=== PATIENT | male | born 1975 | race African-American/Black ===

== ENCOUNTER 2016-09-23 22:57 | Emergency (ER) | payer OTHER ==
[2016-09-23] MEDS ORDERED: NORCO-7.5 PO ONE (23:42)
--- NOTE | 2016-09-24 00:13 | PROVIDER DOCUMENTATION ---
HPI-General Adult - General Chief Complaint: Work Related Injury Stated Complaint: WORK RELATED INJURY Time Seen by Provider: 09/23/16 22:59 Source: patient Allergies/Adverse Reactions: Patient Allergies Allergy/AdvReac Type Severity Reaction Status Date / Time No Known Allergies Allergy Verified 09/23/16 23:25 Home Medications: Home Medication List Medication Instructions Recorded Confirmed Last Taken Type Testosterone Enanthate IM 09/23/16 Unknown History [Delatestryl] Silver Sulfadiazine [Silvadene] 25 gm TP BID #1 cream..g. 09/24/16 Unknown Rx Tramadol [Ultram] 50 mg PO Q8HR #12 tablet 09/24/16 Unknown Rx - History of Present Illness -Gen Adult Nature of Presenting Problems: Pt. is 41 yom that presents with c/o stiles to face and back of neck. Pt. reports a line of ethylene glycol ruptured at work and it splashed on him. Pt. states he showered in the emergency shower at work but he is still hurting. Pt. denies any other injuries. Location of Pain/Injury: reports: face, neck. denies: head, mouth, chest, upper extremity, hand(s), abdomen, back, pelvis, genitalia, lower extremity, feet, upper body, lower body, generalized Pain Radiation: reports: no radiation Quality of Pain: reports: burning. denies: aching, cramping, dull, fullness, indigestion, pressure, sharp, stabbing, tearing, throbbing, tightness Severity: reports: moderate. denies: mild, severe Onset/Duration: reports: abrupt, just prior to arrival Timing: reports: still present. denies: improving, gone now, resolved prior to arrival, intermittent, constant, changing over time, getting worse Context/Activities at Onset: reports: none, recent trauma history. denies: recent emotional stress, recent physical stress, possible bad food, cold exposure, out of country travel Modifying Factors: improves with: nothing Associated Symptoms: reports: other (Stiles). denies: anxiety, arm pain, back/ neck pain, chest pain, constipation, cough, diaphoresis, diarrhea, dizziness, EENT symptoms, fatigue, fever/chills, genitourinary problems, headaches, heartburn, joint pain, loss of appetite, malaise, muscle aches, sinus congestion /drainage, nausea, rash, seizure, shortness of breath, sensory/motor loss, pain with inspiration, swelling/mass in abdomen, syncope, vomiting, weakness, trouble walking Similar Symptoms Previously?: No Recently seen or treated by another doctor?: No Review of Systems - Adult - REVIEW OF SYSTEMS - ADULT Constitutional: reports: see HPI. denies: chills, fever, fatique Eyes: reports: see HPI. denies: discharge, blurred vision, double vision Ears, Nose, Mouth & Throat: reports: see HPI. denies: ear discharge, ear pain, hearing loss, sinus problem, nose pain, loose teeth, mouth/dental pain, throat pain, throat swelling Cardiovascular: reports: see HPI. denies: chest pain, irregular heart rate, orthopnea, syncope Respiratory: reports: see HPI. denies: chronic cough, cough, dyspnea on exertion, pleurisy, shortness of breath, wheezing Gastrointestinal: reports: see HPI. denies: abdominal pain, hematemesis, difficulty swallowing, frequent heartburn, nausea, vomiting Genitourinary: reports: see HPI. denies: dysuria, discharge, hematuria, hesitency, urgency Musculoskeletal: reports: see HPI. denies: bone pain, back pain, joint pain, joint swelling, neck pain Integumentary: reports: see HPI, other (1st degree stiles to face and back of neck with mild erythema and no blistering.). denies: hives, mole changes, nail changes, rash, skin sores/ulcer, skin thickening Neurological: reports: see HPI. denies: ataxia, headache/migraines, paresthesia , seizure, tremors Psychiatric: reports: see HPI. denies: anxiety, depression, emotional problems , insomnia, panic attacks, suicidal thoughts Past History - Adult - PAST MEDICAL HISTORY-ADULT Review of Records: reports: Old Records Reviewed, Nursing Assessment Review, Medications Reviewed, Social history reviewed & non-contributory. Major Childhood Illnesses: reports: denies history Cardiovascular: reports: denies history Respiratory: reports: denies history Gastrointestinal: reports: denies history Obstetrical/Gynecological: reports: denies history Genitourinary: reports: denies history Musculoskeletal: reports: denies history Neurological: reports: denies history Endocrine/Immune: reports: denies history Other Conditions: reports: denies history - IMMUNIZATION STATUS Childhood Immunizations: See Nurse Assessment Flu Vaccine: See Nurse Assessment - FAMILY HISTORY Family History: reviewed, not pertinent - SOCIAL HISTORY Smoking: non-smoker Physical Exam-General - PHYSICAL EXAM-ADULT Initial Vital Signs Reviewed: Yes - CONSTITUTIONAL General Appearance: alert, mild distress. negative: anxious, lethargic, slow to respond, obtunded, combative - EYES Eyes: PERRL/EOMI, pink conjunctivae. negative: conjuctival exudate, scleral icterus, subconjunctival hemorrhage - HEAD, EARS, NOSE, MOUTH & THROAT HENMT: normocephalic/atraumatic, moist mucous membranes. negative: angioedema, frontal tenderness, maxillary tenderness - NECK Neck: non-tender, full range of motion, supple, normal inspection. negative: lymphadenopathy, trachial deviation, thyromegaly - RESPIRATORY Respiratory: lungs clear, normal breath sounds. negative: crackles, rales, rhonchi, stridor, wheezing - CARDIOVASCULAR Cardiovascular: normal peripheral pulses, regular rate, rhythm, no edema, no JVD , no murmur. negative: extra beats, friction rub, irregularly irregular - CHEST (BREASTS) Chest/Breast: deferred - GASTROINTESTINAL (ABDOMEN) Abdominal Exam: normal bowel sounds, non tender, soft. negative: distended, guarding, rigid, rebound, tenderness, hernia, mass - GENITOURINARY Male Genitalia: deferred Rectal Exam: deferred Hemoccult Exam: deferred - LYMPHATIC Lymphatic: no adenopathy. negative: axilla node tender, cervical node tenderness - MUSCULOSKELETAL Back Exam: normal inspection, no CVA tenderness, no vertebral tenderness. negative: ecchymosis, swelling, vertebral tenderness Extremity: normal range of motion, non-tender, normal gait, normal inspection. negative: deformity, erythema, inflammation, swelling, tenderness Peripheral Pulses: radial (R): 2+, radial (L): 2+ - SKIN Integumentary: normal color, normal turgor, warm/dry, erythema (Several small spots on face and on back of neck.), tenderness (Several small spots on face and on back of neck.). negative: cyanosis, diaphoresis, ecchymosis, jaundice, mottled, pallor, petechiae, purpura, rash, swelling - NEUROLOGIC Neurologic: grossly normal, no motor/sensory deficits. negative: aphasia, facial droop, focal weakness, motor weakness, sensory deficit - PSYCHIATRIC Psych/Mental Status: normal mood/affect, normal thought content, normal thought process, oriented x 3. negative: anxious, paranoid, tearful Progress - PLAN OF CARE/RESULTS Progress/Plan/Lab Results: Discussed results and plan of care with patient. Patient agrees with plan and verbalizes understanding. Vital Signs Temp Pulse Resp BP Pulse Ox 09/23/16 23:22 97.4 F L 77 20 163/99 100 No Known Allergies Allergy (Verified 09/23/16 23:25) Testosterone Enanthate [Delatestryl] IM 09/23/16 Orders Category Date Time Status CHEST-2 VIEWS [RAD] Stat Exams 09/23/16 23:42 Taken Hydrocodone/APAP 7.5 mg/325 mg [[place]-7.5] Med 09/23/16 23:42 Discontinued 1 each PO NOW ONE Dr. Priest at bedside for evaluation. - XRAY 1 XRAY Study: Chest XRAY Interpretation: DHARA Stoddard) Departure - Departure Time of Disposition Order: 00:09 DIAGNOSIS: Burn by hot liquid Disposition: HOME 01 Certified Medical Emergency: Emergent Condition: Stable Additional Instructions: Follow up with primary care physician Take medications as directed Return to ED for any concerns or worsening of symptoms ED Follow Up Instructions: You have been treated by a care provider in the Emergency Department. These instructions are being provided to you so you can have an understanding of how to care for yourself upon discharge. Upon discharge from the Emergency Department, you are responsible for making arrangements for follow-up care by a physician of your choice. Take all prescribed medications as directed. Return to the Emergency Department immediately for any new or worsening symptoms. You may call the Physician Referral phone number at [phone] to obtain a list of Physicians who are taking new patients. Prescriptions: Silver Sulfadiazine [Silvadene] 25 gm TP BID #1 cream..g. Tramadol [Ultram] 50 mg PO Q8HR #12 tablet Attestation - Physician/ MARY ALICE Attestation Patient care was provided by Advanced Practice Provider:: Yes Advanced Practice Provider:: Rosemary Martini Advanced Practice Provider documentation review:: The Mid-level provider documentation, treatment plan and medical decision making was reviewed by the physician who agrees with all treatment and medical decision making by the P. The physician spent face to face time with patient:: Yes
[2016-09-24 00:57] VITALS: BP 139/088
--- NOTE | 2016-09-24 08:51 | Diag Imaging Result Document ---
PROCEDURE NAME: CHEST-2 VIEWS - 09/23/2016 FRONTAL AND LATERAL CHEST, TWO VIEWS: COMPARISON: 05/13/2015. FINDINGS: The lungs are well expanded. The heart is not enlarged. The vessels are not distended. There are no infiltrates. No consolidation. No pleural effusions. IMPRESSION: No acute abnormality.
== END 2016-09-24 00:55 | disposition home or self-care (01) ==
LOC: P.ED 22:57
DX: T20.16XA Burn of first degree of forehead and cheek, initial encounter (principal); T20.17XA Burn of first degree of neck, initial encounter; X12.XXXA Contact with other hot fluids, initial encounter; Z79.899 Other long term (current) drug therapy
CPT/HCPCS: 71020; 99283